=== PATIENT | female | born 1940 | race Caucasian/White ===

== ENCOUNTER 2017-03-05 12:04 | Emergency (ER) | payer MEDICARE ==
[~2017-03-05] VITALS: Ht 162.6 cm; Wt 72.0 kg
[2017-03-05 14:17] VITALS: BP 141/60
== END 2017-03-05 14:19 | disposition home or self-care (01) ==
LOC: ED 12:34
DX: S32.020A Wedge compression fracture of second lumbar vertebra, initial encounter for closed fracture (principal); I10 Essential (primary) hypertension; E11.9 Type 2 diabetes mellitus without complications; Z87.891 Personal history of nicotine dependence; X58.XXXA Exposure to other specified factors, initial encounter; Y93.89 Activity, other specified; Y92.89 Other specified places as the place of occurrence of the external cause; Y99.9 Unspecified external cause status
CPT/HCPCS: 72110; 99284

== ENCOUNTER → 2017-05-06 | Outpatient (CLI) | payer MEDICARE ==
[~2017-05-06] MED LIST: ASCO500T29 PO; ATOR40TA78 PO; BIOT1TAB PO; CHOL10003 PO; CYAN50008 PO; DORZ10DR7 EACHEYE; FAMO-79 PO; FOLI0.4T2 PO; GABA300C10 PO; INSU300I SC; LATA2.5D3 EACHEYE; LEVO125T5 PO; LOSA50TA6 PO; METF10002 PO
[2017-05-06 12:23] LABS: ASPARTATE AMINO TRANSFERASE 17 U/L (15-37); BLOOD UREA NITROGEN 14 mg/dL (7-18)
[2017-05-06 13:01] LABS: HIV 1&2 ANTIBODY SCREEN Nonreactive (Nonreactive); HIV-1 p24 ANTIGEN Nonreactive (Nonreactive)
[2017-05-06 13:42] LABS: HEPATITIS C VIRUS ANTIBODY Nonreactive (Nonreactive)
== END | disposition home or self-care (01) ==
LOC: STAR 10:03
PROVIDERS: ATTEND Orthopaedic Surgery Orthopaedic Surgery of the Spine
DX: Z01.818 Encounter for other preprocedural examination (principal); R94.31 Abnormal electrocardiogram [ECG] [EKG]; S22.089A Unspecified fracture of T11-T12 vertebra, initial encounter for closed fracture; I10 Essential (primary) hypertension; E11.9 Type 2 diabetes mellitus without complications; R82.79 Other abnormal findings on microbiological examination of urine; X58.XXXA Exposure to other specified factors, initial encounter; Y93.89 Activity, other specified; Y92.89 Other specified places as the place of occurrence of the external cause; Y99.8 Other external cause status
CPT/HCPCS: 36415; 71020; 80053; 80074; 81001; 85025; 85610; 85651; 85730; 86703; 87086; 87899; 93005; G0435

== ENCOUNTER 2017-05-24 05:36 | Day surgery (SDC) | payer MEDICARE ==
[~2017-05-24] VITALS: Ht 162.6 cm; Wt 72.0 kg
[2017-05-24] MEDS ORDERED: LACTATED RINGERS 1,000 ML IV SCH (06:07)
[2017-05-24 06:09] VITALS: BP 172/77
[2017-05-24] MEDS ORDERED: LIDOCAINE/PF 1%, 30ML ONE (06:43)
[2017-05-24] MEDS ORDERED: BUPIVACAINE/PF-EPI 0.5% 1:200K ONE (06:43)
[2017-05-24] MEDS ORDERED: EPINEPHRINE 1 MG/ML, 1ML ONE (06:59)
[2017-05-24] MEDS ORDERED: FENTANYL PF 100 MCG/2ML ONE (07:06)
[2017-05-24] MEDS ORDERED: CEFAZOLIN 1,000 MG ONE (07:52)
[2017-05-24] MEDS ORDERED: ROCURONIUM 10 MG/ML ONE (07:52)
[2017-05-24] MEDS ORDERED: GLYCOPYRROLATE 0.2MG/1ML ONE (07:52)
[2017-05-24] MEDS ORDERED: ONDANSETRON 2MG/ML, 2ML ONE (07:52)
[2017-05-24] MEDS ORDERED: DEXAMETHASONE 4 MG/ML, 1ML ONE (07:52)
[2017-05-24] MEDS ORDERED: NEOSTIGMINE 1 MG/ML, 10ML ONE (07:52)
[2017-05-24] MEDS ORDERED: PROPOFOL 10 MG/ML, 20ML ONE (07:52)
[2017-05-24] MEDS ORDERED: OMNIPAQUE 180 MG/ML, 20ML VIAL IT ONE (08:16)
[2017-05-24] MEDS ORDERED: ACETAMINOPHEN 325 MG TABLET PO PRN (09:00)
[2017-05-24] MEDS ORDERED: PROMETHAZINE 25 MG/ML, 1ML IV PRN (09:00)
[2017-05-24] MEDS ORDERED: HYDROmorphone 1 MG/ML, 1ML IV PRN (09:00)
[2017-05-24] MEDS ORDERED: hydrALAzine 20 MG/ML, 1ML IV PRN (09:00)
[2017-05-24] MEDS ORDERED: METOPROLOL 1 MG/ML, 5ML IV PRN (09:00)
[2017-05-24] MEDS ORDERED: OXYcodone 5 MG/5 ML ORAL.SOL UDC PO PRN (09:00)
[2017-05-24] MEDS ORDERED: FENTANYL PF 100 MCG/2ML IV PRN (09:00)
[2017-05-24] MEDS ORDERED: OXYcodone 5 MG/5 ML ORAL.SOL UDC ONE (09:09)
[2017-05-24] MEDS ORDERED: ACETAMINOPHEN 325 MG/10.15 ML UDC ONE (09:10)
[2017-05-24] MEDS ORDERED: ACETAMINOPHEN 650 MG/20.3 ML UDC ONE (09:10)
[2017-05-24] MEDS ORDERED: OMNIPAQUE 180 MG/ML, 20ML VIAL ONE (09:31)
== END 2017-05-24 11:02 ==
LOC: OUT 05:36
PROVIDERS: ATTEND Orthopaedic Surgery Orthopaedic Surgery of the Spine
DX: M80.08XA Age-related osteoporosis with current pathological fracture, vertebra(e), initial encounter for fracture (principal); E11.9 Type 2 diabetes mellitus without complications; Z88.5 Allergy status to narcotic agent; Z90.49 Acquired absence of other specified parts of digestive tract; Z98.890 Other specified postprocedural states; Z85.9 Personal history of malignant neoplasm, unspecified
CPT/HCPCS: 22513; 72072; 82962; 88307; 88311; 88342; C1713; J0171; J0690; J1100; J2405; J2704; J2710; J3010; J3490; J7120; Q9965; G0461

== ENCOUNTER 2017-07-10 22:39 | Emergency (ER) | payer MEDICARE ==
[~2017-07-10] VITALS: Ht 162.6 cm; Wt 70.7 kg
[~2017-07-10 22:39] MED LIST changes: +ASCO-90 PO; -ASCO500T29 PO; -BIOT1TAB PO; +BIOT1TAB2 PO
[2017-07-10] MEDS ORDERED: SILVER NITRATE STICK TP ONE (23:07)
[2017-07-10] MEDS ORDERED: PHENYLEPHRINE NASAL 1%, 15ML SPRAY ONE (23:07)
[2017-07-10] MEDS ORDERED: BACITRACIN ZINC OINT 500U/GM, 0.9 GM ONE (23:07)
[2017-07-10 23:54] VITALS: BP 156/71
[2017-07-13] MEDS ORDERED: GLIM1TAB2 PO (00:20)
[2017-07-13] MEDS ORDERED: GABA300C10 PO (00:20)
[2017-07-13] MEDS ORDERED: CLOP75TA PO (00:20)
[2017-07-13] MEDS ORDERED: FOLI0.8T2 PO (00:20)
[2017-07-13] MEDS ORDERED: INSU100V8 SQ (00:21)
== END 2017-07-11 00:16 | disposition home or self-care (01) ==
LOC: ED 23:34
DX: R04.0 Epistaxis (principal); I10 Essential (primary) hypertension; E11.9 Type 2 diabetes mellitus without complications
CPT/HCPCS: 30901; 99284